=== PATIENT | male | born 1960 | race American Indian/Alaskan Native ===

== ENCOUNTER 2016-11-26 12:16 | Emergency (ER) | payer MEDICAID ==
[2016-11-26 12:29] VITALS: BP 114/67; PULSE 61; RESP 13; TEMP 97.8; O2SAT 99
[2016-11-26] MEDS ORDERED: cefTRIAXone (Rocephin) 250 mg Inj IM STA (12:54)
--- NOTE | 2016-11-26 12:54 | C.PDOC ---
Time Seen by Provider: 11/26/16 12:39 Chief Complaint (Nursing): Male Genitourinary Past Medical History Vital Signs: Last Vital Signs Temp 97.8 F 11/26/16 12:28 Pulse 61 11/26/16 12:28 Resp 13 11/26/16 12:28 BP 114/67 11/26/16 12:28 Pulse Ox 99 11/26/16 12:28 - Social History Hx Alcohol Use: Yes Hx Substance Use: No - Immunization History Hx Tetanus Toxoid Vaccination: Yes Hx Influenza Vaccination: No Hx Pneumococcal Vaccination: No ED Course And Treatment O2 Sat by Pulse Oximetry: 99 Disposition Counseled Patient/Family Regarding: Studies Performed, Diagnosis, Need For Followup, Rx Given - Disposition Referrals: YOUR,PMD [Other] Disposition: HOME/ ROUTINE Disposition Time: 12:52 Condition: GOOD Prescriptions: Azithromycin 1 tab PO DAILY #4 tab Instructions: Sexually Transmitted Diseases (ED) Forms: [employer] ([place]ian) - Clinical Impression Clinical Impression: Penile discharge, Concern about STD in male without diagnosis
--- NOTE | 2016-11-26 12:55 | C.PDOC ---
History Of Present Illness 56 Y/O MALE C/O PENILE DISCHARGE FOR 3 DAYS. CONCERNED FOR POSSIBLE STD EXPOSURE , NOTES HE HAD UNPROTECTED SEX 3-4 DAYS AGO. REPORTS "FEELS UNCOMFORTABLE". DENIES RASH, DYSURIA, TESTICULAR PAIN OR SWELLING. Time Seen by Provider: 11/26/16 12:39 Chief Complaint (Nursing): Male Genitourinary History Per: Patient History/Exam Limitations: no limitations Onset/Duration Of Symptoms: Days Current Symptoms Are (Timing): Still Present Associated Symptoms: denies: Fever, Chills, Diarrhea, Urinary Symptoms Recent travel outside of the [place]: No Past Medical History Reviewed: Historical Data, Nursing Documentation, Vital Signs Vital Signs: Last Vital Signs Temp 97.8 F 11/26/16 12:28 Pulse 61 11/26/16 12:28 Resp 13 11/26/16 12:28 BP 114/67 11/26/16 12:28 Pulse Ox 99 11/26/16 13:26 - Medical History PMH: No Chronic Diseases Family History: States: Unknown Family Hx - Social History Hx Alcohol Use: Yes Hx Substance Use: No - Immunization History Hx Tetanus Toxoid Vaccination: Yes Hx Influenza Vaccination: No Hx Pneumococcal Vaccination: No Review Of Systems Except As Marked, All Systems Reviewed And Found Negative. Constitutional: Negative for: Fever, Chills Respiratory: Negative for: Cough, Shortness of Breath Gastrointestinal: Negative for: Nausea, Vomiting Genitourinary: Positive for: Penile Discharge. Negative for: Dysuria, Hematuria Skin: Negative for: Rash Neurological: Negative for: Headache Physical Exam - Physical Exam Appears: Non-toxic, No Acute Distress Skin: Normal Color, Warm, Dry Head: Atraumatic, Normacephalic Oral Mucosa: Moist Chest: Symmetrical Cardiovascular: Rhythm Regular, No Murmur Respiratory: Normal Breath Sounds, No Rales, No Rhonchi, No Wheezing Gastrointestinal/Abdominal: Soft, No Tenderness, No Guarding, No Rebound Back: Normal Inspection Male Genital: Normal Inspection, No Testicular Tenderness, No Testicular Swelling, No Inguinal Tenderness, Circumcised Extremity: Normal ROM, Capillary Refill (< 2 SEC. ) Neurological/Psych: Oriented x3, Normal Speech, Normal Cognition ED Course And Treatment O2 Sat by Pulse Oximetry: 99 (RA) Pulse Ox Interpretation: Normal Progress - Re-Evaluation Re-evaluation Note: 11/26/16 12:55 PT ADVISED NEED FOR TREATMENT DUE TO HIGH RISK. PT AGREES. ROCEPHIN, UA ORDERED. Disposition - Disposition Referrals: YOUR,PMD [Other] Disposition: HOME/ ROUTINE Disposition Time: 13:56 Condition: GOOD Prescriptions: Azithromycin 1 tab PO DAILY #4 tab Instructions: Sexually Transmitted Diseases (ED) Forms: [employer] ([place]yan) - Clinical Impression Clinical Impression: Penile discharge, Concern about STD in male without diagnosis - Scribe Statement The provider has reviewed the documentation as recorded by the Hermann PARR Provider Attestation: All medical record entries made by the Hermann were at my direction and personally dictated by me. I have reviewed the chart and agree that the record accurately reflects my personal performance of the history, physical exam, medical decision making, and the department course for this patient. I have also personally directed, reviewed, and agree with the discharge instructions and disposition.
[2016-11-26 13:46] LABS: URINE BILIRUBIN NEGATIVE (NEGATIVE); URINE BLOOD 1+ (NEGATIVE); URINE CLARITY Clear (Clear); URINE COLOR Yellow (YELLOW); URINE GLUCOSE (UA) NORMAL (Normal); URINE LEUKOCYTE ESTERASE NEG Leu/uL (Negative); URINE NITRATE NEGATIVE (NEGATIVE); URINE PROTEIN NEGATIVE (NEGATIVE); URINE UROBILINOGEN NORMAL mg/dL (0.2-1.0)
== END 2016-11-26 14:19 | disposition home or self-care (01) ==
LOC: C.ER 12:16
DX: R36.9 Urethral discharge, unspecified (principal)
CPT/HCPCS: 81001; 87491; 87591; 96372; 99284; J0696

== ENCOUNTER 2018-04-07 08:16 | Day surgery (SDC) | payer MEDICARE, MEDICAID ==
[2018-04-07] MEDS ORDERED: Propofol 10 mg/ml Inj (20 ML) ONE ×3 (10:38→11:01)
[2018-04-07] MEDS ORDERED: Lidocaine Hydrochloride 5 ML INJ ONE ×2 (10:38→10:49)
[2018-04-07] MEDS ORDERED: Lactated Ringer's 1,000 ML IV ONE (10:39)
[2018-04-07] MEDS ORDERED: ePHEDrine 50 mg/ml Inj ONE (10:44)
[2018-04-07 11:42] VITALS: TEMP 98
[2018-04-07 12:20] VITALS: BP 108/62; PULSE 74; RESP 13; O2SAT 98
== END 2018-04-07 12:53 | disposition home or self-care (01) ==
LOC: C.ENDO 08:16
PROVIDERS: ATTEND Internal Medicine Gastroenterology
DX: Z12.11 Encounter for screening for malignant neoplasm of colon (principal); R10.13 Epigastric pain; D12.2 Benign neoplasm of ascending colon; K64.8 Other hemorrhoids; K44.9 Diaphragmatic hernia without obstruction or gangrene; K26.9 Duodenal ulcer, unspecified as acute or chronic, without hemorrhage or perforation; K29.70 Gastritis, unspecified, without bleeding
CPT/HCPCS: 43239; 45385; 88305; J2001; J2704; J3010; J7120